=== PATIENT | male | born 1970 | race Caucasian/White ===

== ENCOUNTER 2017-02-16 05:26 | Inpatient (IN) | payer BC ==
[2017-02-16 05:30] VITALS: BMI 27.8
[2017-02-16] MEDS ORDERED: TDAP Vaccine 0.5 mL Syr IM ONE (05:52)
[2017-02-16] MEDS ORDERED: Sodium Chloride 0.9% 1,000 ML IV STA (05:52)
[2017-02-16] MEDS ORDERED: Lidocaine 1%/Epinephrine 1:100000 30 ml vial IJ STA (06:02)
--- NOTE | 2017-02-16 06:02 | ED PDOC ---
Arrival/HPI - General Chief Complaint: Syncope Time Seen by Provider: 02/16/17 05:51 Historian: Patient - History of Present Illness Narrative History of Present Illness (Text): 02/16/17 05:58 A 46 year old male, who denies any past medical history, presents to the emergency department after syncopal episode. Patient states he couldn't sleep so went to the bathroom and as he was sitting on the toilet, browsing the internet on his phone, he passed out. Patient states was not straining. He states he can't recall event. Patient is now complaining of generalized weakness. Patient denies any other complaints at this time. Symptom Onset: Sudden Symptom Course: Unchanged Activities at Onset: Rest Modifying Factors (Text): none Context: Home Past Medical History - Provider Review Nursing Documentation Reviewed: Yes - Infectious Disease Hx of Infectious Diseases: None - Tetanus Immunization Tetanus Immunization: Unknown - Cardiac Hx Hypertension: Yes - Pulmonary Hx Respiratory Disorders: No - Neurological Hx Neurological Disorder: No - HEENT Hx HEENT Disorder: No - Renal Hx Renal Disorder: No - Endocrine/Metabolic Hx Endocrine Disorders: No - Hematological/Oncological Other/Comment: Gout/Hyperuricemia - Integumentary Hx Dermatological Disorder: No - Musculoskeletal/Rheumatological Hx Musculoskeletal Disorders: Yes Hx Gout: Yes - Gastrointestinal Hx Gastrointestinal Disorders: No - Genitourinary/Gynecological Hx Genitourinary Disorders: No - Psychiatric Hx Psychophysiologic Disorder: No Hx Anxiety: Yes Hx Depression: No Hx Emotional Abuse: No Hx Physical Abuse: No Hx Substance Use: No Other/Comment: Insomnia - Surgical History Hx Orthopedic Surgery: Yes (right knee) - Anesthesia Hx Anesthesia: Yes Hx Anesthesia Reactions: No Hx Malignant Hyperthermia: No - Suicidal Assessment Feels Threatened In Home Enviroment: No Family/Social History - Physician Review Nursing Documentation Reviewed: Yes Family/Social History: No Known Family HX Smoking Status: Never Smoked Hx Alcohol Use: No Amount per day: 1 Hx Substance Use: No Hx Substance Use Treatment: No Allergies/Home Meds Allergies/Adverse Reactions: Allergies No Known Allergies Allergy (Verified 02/24/16 11:00) Home Medications: Home Meds Medication Instructions Recorded Confirmed Allopurinol [Allopurinol] 1 tab PO DAILY 02/24/16 02/16/17 Escitalopram [Lexapro] 1 tab PO DAILY 02/16/17 02/16/17 traZODone [Desyrel] 1 tab PO HS 02/16/17 02/16/17 Review of Systems - Physician Review All systems were reviewed & negative as marked: Yes Physical Exam - Physical Exam Narrative Physical Exam (Text): 02/16/17 06:02- Review of Systems Constitutional: Present: generalized weakness absent: Weight Change, Fevers Eyes: Normal ENT: Normal Respiratory: Normal absent: SOB, Cough, Sputum Cardiovascular: Normal absent: Chest pain, Palpitations, Syncope Gastrointestinal: Normal absent: Abdominal pain, Diarrhea, Nausea, Vomiting Genitourinary: Normal. absent: Dysuria, Frequency, Hematuria Musculoskeletal: Normal. absent: Arthralgias, Back Pain, Neck Pain Skin: eyebrow laceration Neurological: Normal absent: Focal Weakness Endocrine: Normal Hemo/Lymphatic: Normal Psychiatric: Normal - Physical exam Patient appears age appropriate, speaking full sentences without difficulty 1.5 cm eyebrow laceration approximately 3-4 mm deep. No nasal bone deformity or tenderness, no facial or jaw pain/swelling. No neck midline tenderness, thoracic and lumbar spine with no midline tenderness. Pt moving b/l upper and lower extremities without difficulty, 5/5 strength, with full active and passive ROM. Distal neurovasc fully intact. Abd soft/nt/nd, no hematomas, no peritoneal signs. Neg. pelvic rock. - Systems Exam Head: Present: Atraumatic, Normocephalic Pupils: Present: PERRL Extraocular Muscles: Present: EOMI Conjunctiva: Present: Normal Mouth: Present: Moist Mucous Membranes Neck: Present: Normal Range of Motion. No: MIDLINE TENDERNESS, Paraspinal Tenderness Respiratory/Chest: Present: Clear to Auscultation, Good Air Exchange. No: Respiratory Distress, Accessory Muscle Use, Tachypneic Cardiovascular: Present: Regular Rate and Rhythm, Normal S1, S2, Peripheral Pulses Present. No: Murmurs Abdomen: Present: Normal Bowel Sounds, No: Tenderness, Peritoneal Signs, Rebound, Guarding, Distention Back: Present: Normal Inspection. No: Midline Tenderness, Paraspinal Tenderness Upper Extremity: Present: Normal Inspection. No: Cyanosis, Edema Lower Extremity: Present: Normal Inspection. No: Edema Neurological: Present: GCS=15, Speech Normal, cranial nerves II through XII fully intact with no cerebellar abnormality, neuro-sensory fully intact. No focal neurological deficits. Skin: Present: Warm, Dry, Normal Color, eyebrow laceration. No: Rashes Lymphatic: Present: OX3, NI, NC Psychiatric: Present: Alert, Oriented x 3, Normal Insight, Normal Concentration Vital Signs Reviewed: Yes Vital Signs Temp Pulse Resp BP Pulse Ox 02/16/17 06:19 97.8 F 67 16 136/74 96 Temperature: Afebrile Blood Pressure: Normal Pulse: Regular Respiratory Rate: Normal Appearance: Positive for: Well-Appearing Pain Distress: None Mental Status: Positive for: Alert and Oriented X 3 Medical Decision Making ED Course and Treatment: 02/16/17 06:04 Impression: A 46 year old male presents to emergency department after syncopal episode, who is now complaining of generalized weakness. On physical exam, patient had 1.5 cm eyebrow laceration approximately 3-4 mm deep. Pt has no focal neurological deficits on examination. Differential Diagnosis include but are not limited to: syncope, dehydration Plan: -- EKG -- chest xray -- CT head -- Labs -- Urinalysis -- Boostrix Vaccine Inj, IV fluids -- Reassess and disposition Prior Visits: Notes and results from previous visits were reviewed. Patient last seen in the emergency department on 02/24/16 for evaluation of intermittent left sided chest pressure. Dr. Zepeda recommended to discharge and see patient in his office. Progress Notes: EKG: Ordered, reviewed, and independently interpreted the EKG. Rate : 65 BPM Rhythm : NSR Interpretation : No ST-segment elevations, normal intervals. Interpreted by me. Comparison : No previous EKG for comparison. 02/16/17 07:16 francy Banuelos, states to admit to hospitalist francy [place], accepted pt. pt in no distress, aware of and agrees with plan Chest xray interpreted by ED physician shows no pneumothorax, no cardiomegaly, no infiltrates Immediately prior to procedure a "time out" was called to verify the correct patient, procedure and site. Procedure: Wound anesthetized with 4 ml of 1% epinephrine with lidocaine, cleansed thoroughly, NS irrigation and explored: No foreign body or deep structure involvement detected. Entire laceration closed with size 5-0 vicryl rapide subcuticular running sutures, 4. Dermabond applied superficially Well approximated with no bleeding or neurovasc abnormality - Lab Interpretations Lab Results: 02/16/17 06:10 02/16/17 06:10 Lab Results 02/16/17 06:10: Sodium 139, Potassium 3.6, Chloride 102, Carbon Dioxide 26, Anion Gap 15, BUN 17, Creatinine 1.0, Est GFR ( Amer) > 60, Est GFR (Non- Af Amer) > 60, Random Glucose 91, Calcium 9.1, Total Bilirubin 0.5, AST 27, ALT 39, Alkaline Phosphatase 57, Lactate Dehydrogenase 372, Total Creatine Kinase 71 , Troponin I < 0.01, Total Protein 7.9, Albumin 4.3, Globulin 3.6, Albumin/ Globulin Ratio 1.2 02/16/17 06:10: PT 10.9, INR 1.01, APTT 24.0 02/16/17 06:10: WBC 9.9 D, RBC 4.90, Hgb 14.5, Hct 42.9, MCV 87.6, MCH 29.6, MCHC 33.8, RDW 14.8 H, Plt Count 286, MPV 10.6, Gran % 47.3 L, Lymph % (Auto) 38.1 H, Lewis % (Auto) 11.6 H, Eos % (Auto) 2.7, Baso % (Auto) 0.3, Gran # 4.68, Lymph # 3.8 H, Lewis # 1.2 H, Eos # 0.3, Baso # 0.03 I have reviewed the lab results: Yes - RAD Interpretation Radiology Orders: 02/16/17 05:51 HEAD W/O CONTRAST [CT] Stat 02/16/17 05:52 CHEST PORTABLE [RAD] Stat - EKG Interpretation Interpreted by ED Physician: Yes Type: 12 lead EKG - Medication Orders Current Medication Orders: Discontinued Medications Sodium Chloride (Sodium Chloride 0.9%) 1,000 mls @ 1,000 mls/hr IV .Q1H STA Stop: 02/16/17 06:51 Last Admin: 02/16/17 06:36 Dose: 1,000 mls/hr Lidocaine/Epinephrine (Lidocaine 1%/Epinephrine 1:205599 30 Ml) 1 ml IJ STAT STA Stop: 02/16/17 06:03 Last Admin: 02/16/17 06:39 Dose: 1 ml Tetanus/Reduced Diphtheria/Acell Pertussis (Boostrix Vaccine Inj) 0.5 ml IM .ONCE ONE Stop: 02/16/17 05:53 Last Admin: 02/16/17 06:40 Dose: 0.5 ml - Scribe Statement Huong Farias All medical record entries made by the Scribe were at my direction and personally dictated by me. I have reviewed the chart and agree that the record accurately reflects my personal performance of the history, physical exam, medical decision making, and the department course for this patient. I have also personally directed, reviewed, and agree with the discharge instructions and disposition. Disposition/Present on Arrival - Present on Arrival Any Indicators Present on Arrival: No History of DVT/PE: No History of Uncontrolled Diabetes: No Urinary Catheter: No History of Decub. Ulcer: No History Surgical Site Infection Following: None - Disposition Have Diagnosis and Disposition been Completed?: Yes Diagnosis: Syncope Disposition: HOME/ ROUTINE Disposition Time: 07:31 Patient Plan: Observation Condition: FAIR Discharge Instructions (ExitCare): Syncope (ED) Referrals: Jared Zepeda MD [Primary Care Provider] - Follow up with primary
[2017-02-16 06:36] LABS: ADD MANUAL DIFF? NO
[2017-02-16 06:43] LABS: GRAN % 47.3 % (50.0-68.0); HEMATOCRIT 42.9 % (42.0-52.0); LYMPH % 38.1 % (22.0-35.0); MEAN CELL VOLUME 87.6 fL (80.0-105.0); MEAN CORPUSCULAR HEMOGLOBIN 29.6 pg (25.0-35.0); MEAN CORPUSCULAR HGB CONC 33.8 g/dl (31.0-37.0); MEAN PLATELET VOLUME 10.6 fl (7.0-11.0); PLATELET COUNT 286 10^3/uL (120.0-450.0); RED CELL DISTRIBUTION WIDTH 14.8 % (11.5-14.5); WHITE BLOOD COUNT 9.9 10^3/ul (4.5-11.0)
[2017-02-16 06:44] LABS: BASO # 0.03 K/mm3 (0.0-2.0); BASO % 0.3 % (0.0-3.0); EOS # 0.3 (0.0-0.7); EOS % 2.7 % (1.5-5.0); GRAN # 4.68 (1.4-6.5); LYMPH # 3.8 (1.2-3.4); MONO # 1.2 (0.1-0.6); MONO % 11.6 % (1.0-6.0)
--- NOTE | 2017-02-16 06:47 | CT ---
EXAM: CT Head Without Intravenous Contrast CLINICAL HISTORY: 46 years old, male; Signs and symptoms; Syncope and collapse TECHNIQUE: Axial computed tomography images of the head/brain without intravenous contrast. This CT exam was performed using one or more of the following dose reduction techniques: automated exposure control, adjustment of the mA and/or kV according to patient size, and/or use of iterative reconstruction technique. EXAM DATE/TIME: 02/16/2017 5:51 AM COMPARISON: No relevant prior studies available. FINDINGS: There is no subdural or subarachnoid hemorrhage. There is no intraparenchymal hemorrhage. Normal larsen white differentiation is noted. No midline shift or mass effect is identified. Calvarium and visualized facial bones appear intact. The minimal mucosa thickening to ethmoid and maxillary sinuses. IMPRESSION: No evidence of acute cerebral hemorrhage or edema.
[2017-02-16 06:49] LABS: ALB/GLOB RATIO 1.2 (1.1-1.8); ALKALINE PHOSPHATASE 57 U/L (38-133); ALT/SGPT 39 U/L (7-56); AST/SGOT 27 U/L (15-59); BILIRUBIN,TOTAL 0.5 mg/dL (0.2-1.3); BLOOD UREA NITROGEN 17 mg/dL (7-21); CALCIUM 9.1 mg/dL (8.4-10.5); CARBON DIOXIDE 26 mmol/L (21-33); CHLORIDE 102 mmol/L (98-107); GFR AFRICAN-AMERICAN > 60; GLUCOSE,RANDOM 91 mg/dL (70-110); INR 1.01 (0.93-1.08); POTASSIUM 3.6 mmol/L (3.6-5.0); SODIUM 139 mmol/L (132-148); TOTAL PROTEIN 7.9 g/dL (5.8-8.3)
[2017-02-16 07:08] LABS: TROPONIN I < 0.01 ng/mL
[2017-02-16 07:28] LABS: URINE BILIRUBIN NEGATIVE (NEGATIVE); URINE BLOOD TRACE-INTACT (NEGATIVE); URINE GLUCOSE (UA) NEGATIVE (NEGATIVE); URINE KETONE NEGATIVE (NEGATIVE); URINE LEUKOCYTE ESTERASE NEGATIVE Leu/uL (NEGATIVE); URINE PROTEIN NEGATIVE mg/dL (<30 mg/dL); URINE UROBILINOGEN 0.2 E.U./dL (<1 E.U./dL)
[2017-02-16 07:40] LABS: URINE APPEARANCE CLEAR (CLEAR); URINE COLOR YELLOW (YELLOW)
[2017-02-16 08:38] LABS: URINE BACTERIA TRACE (NEG); URINE RBC 0 - 2 /hpf (0-2); URINE WBC 0 - 2 /hpf (0-6)
--- NOTE | 2017-02-16 11:06 | RAD ---
HISTORY: cough COMPARISON: No prior. FINDINGS: LUNGS: No active pulmonary disease. PLEURA: No significant pleural effusion identified, no pneumothorax apparent. CARDIOVASCULAR: Normal. OSSEOUS STRUCTURES: No significant abnormalities. VISUALIZED UPPER ABDOMEN: Normal. OTHER FINDINGS: None. IMPRESSION: No active disease.
--- NOTE | 2017-02-16 11:49 | CP.PCM.HP ---
<Clotilde Ny - Last Filed: 02/16/17 11:40> History of Present Illness - History of Present Illness History of Present Illness: This is a 46Y M with PMH insomnia, Anxiety, depression, and gout who came to the ED for syncopal episode. Patient reports he has been trouble sleeping the past few nights. Last night he was sitting on the toilet, not having a BM or straining and next thing he knew he was on the floor. He denies tongue biting, muscle pain, papitations at the time. He did hit his head and has a cut on his L eyebrow. As he was cleaning up the blood, he began to feel nauseous again like he was going to pass out and he passed out again. It was witnessed by his son, he did not have tonic-clonic movements or incontinence. He has had syncopal episodes in the past. In the past 6 months he has had at least 2 syncopal episodes. He does have a history of anxiety and feels chest pains at times especially when he was anxious. His reports that many years ago he had an MRI of his brain which showed a dilated vein and was supposed to get a repeat MRI 6 months later, but never followed up. He did have a stress test 2 years ago which was normal. He denies CP, SOB, n/v/d, numbness/tingling, pain, fever or chills. He does have a slight headache. PMH: insomnia, Anxiety, depression, gout PSH: Arthroscopy R knee Home meds: Trazodone 50mg 1.5 tab qHS, Lexapro 5mg qd Confirmed with Pharmacy [facility] [address] All: NKDA SH: Former smoker (quit 3yrs ago- smoked 1.5ppd x 25yrs). Denies drug or EtOH use. Works as personal carer FH: Dad- Prostate Ca age 83, Mom- 52yo for kidney failure, Sister- DM , heart problems PMD: Dr. Zepeda Psychiatrist: Dr. Peters Present on Admission - Present on Admission Any Indicators Present on Admission: No Review of Systems - Review of Systems Review of Systems: As per HPI Past Patient History - Infectious Disease Hx of Infectious Diseases: None - Tetanus Immunizations Tetanus Immunization: Unknown - Past Social History Smoking Status: Never Smoked - CARDIAC Hx Hypertension: Yes - PULMONARY Hx Respiratory Disorders: No - NEUROLOGICAL Hx Neurological Disorder: No - HEENT Hx HEENT Problems: No - RENAL Hx Chronic Kidney Disease: No - ENDOCRINE/METABOLIC Hx Endocrine Disorders: No - HEMATOLOGICAL/ONCOLOGICAL Other/Comment: Gout/Hyperuricemia - INTEGUMENTARY Hx Dermatological Problems: No - MUSCULOSKELETAL/RHEUMATOLOGICAL Hx Musculoskeletal Disorders: Yes Hx Gout: Yes - GASTROINTESTINAL Hx Gastrointestinal Disorders: No - GENITOURINARY/GYNECOLOGICAL Hx Genitourinary Disorders: No - PSYCHIATRIC Hx Psychophysiologic Disorder: No Hx Anxiety: Yes Hx Depression: No Hx Emotional Abuse: No Hx Physical Abuse: No Hx Substance Use: No Other/Comment: Insomnia - SURGICAL HISTORY Hx Orthopedic Surgery: Yes (right knee) - ANESTHESIA Hx Anesthesia: Yes Hx Anesthesia Reactions: No Hx Malignant Hyperthermia: No Meds Allergies/Adverse Reactions: Allergies Allergy/AdvReac Type Severity Reaction Status Date / Time No Known Allergies Allergy Verified 02/24/16 11:00 Physical Exam - Constitutional Appears: No Acute Distress - Head Exam Head Exam: ATRAUMATIC, NORMAL INSPECTION, NORMOCEPHALIC - Eye Exam Eye Exam: Normal appearance Pupil Exam: NORMAL ACCOMODATION - ENT Exam ENT Exam: Mucous Membranes Moist - Neck Exam Neck exam: Positive for: Normal Inspection - Respiratory Exam Respiratory Exam: Clear to Auscultation Bilateral, NORMAL BREATHING PATTERN. absent: Rales, Rhonchi, Wheezes - Cardiovascular Exam Cardiovascular Exam: REGULAR RHYTHM, +S1, +S2. absent: Gallop, Rubs, Systolic Murmur - GI/Abdominal Exam GI & Abdominal Exam: Normal Bowel Sounds, Soft. absent: Mass, Rebound, Rigid, Tenderness - Extremities Exam Extremities exam: Positive for: normal inspection. Negative for: calf tenderness, pedal edema - Neurological Exam Neurological exam: Alert, CN II-XII Intact, Oriented x3 - Psychiatric Exam Psychiatric exam: Anxious, Normal Affect, Normal Mood - Skin Skin Exam: Dry, Intact, Normal Color, Warm Results - Vital Signs Recent Vital Signs: Last Vital Signs Temp 97.8 F 02/16/17 06:19 Pulse 636 H 02/16/17 09:00 Resp 18 02/16/17 09:00 BP 139/83 02/16/17 09:00 Pulse Ox 96 02/16/17 09:00 - Labs Result Diagrams: 02/16/17 06:10 02/16/17 06:10 Assessment & Plan - Assessment and Plan (Free Text) Assessment: This is a 46Y M with PMH Insomnia, anxiety/depression, and gout admitted for syncopal episode. Plan: 1. Syncope - secondary to cardiac versus seizure versus anxiety - Neuro check - Aspiration precaution - EKG showed NSR - CT head negative - Will check echo, carotid doppler and EEG - will check MRI of brain for venous dilation - Cardio consulted - Neuro consulted - Tylenol prn pain, Zofran prn nausea 2. Insomnia - Continue home meds: Trazodone 75mg HS 3. Depression/Anxiety - Psych consulted - Ativan prn anxiety - Continue Home meds: Lexapro GI ppx: Protonix DVT ppx: SCDs Case seen, discussed and reviewed with attending. Milly Ny - Date & Time Date: 02/16/17 Time: 11:53 <Amy Duran - Last Filed: 02/17/17 12:56> Results - Vital Signs Recent Vital Signs: Last Vital Signs Temp 98.3 F 02/17/17 12:00 Pulse 66 02/17/17 12:00 Resp 20 02/17/17 12:00 BP 130/70 02/17/17 12:00 Pulse Ox 95 02/17/17 05:56 - Labs Result Diagrams: 02/17/17 07:57 02/17/17 07:57 Labs: Laboratory Results - last 24 hr 02/16/17 02/16/17 02/17/17 14:19 18:00 07:57 WBC 8.8 RBC 5.00 Hgb 14.9 Hct 44.0 MCV 88.0 MCH 29.8 MCHC 33.9 RDW 14.8 H Plt Count 301 MPV 10.5 Gran % 48.6 L Lymph % (Auto) 37.2 H [place] % (Auto) 10.1 H Eos % (Auto) 3.5 Baso % (Auto) 0.6 Gran # 4.30 Lymph # 3.3 [place] # 0.9 H Eos # 0.3 Baso # 0.05 Sodium Potassium Chloride Carbon Dioxide Anion Gap BUN Creatinine Est GFR ( Amer) Est GFR (Non-Af Amer) Random Glucose Calcium Total Bilirubin AST ALT Alkaline Phosphatase Total Protein Albumin Globulin Albumin/Globulin Ratio Triglycerides Cholesterol LDL Cholesterol Direct HDL Cholesterol TSH 3rd Generation Urine Opiates Screen Negative Urine Methadone Screen Negative Ur Barbiturates Screen Negative Ur Phencyclidine Scrn Negative Ur Amphetamines Screen Negative U Benzodiazepines Scrn Negative U Oth Cocaine Metabols Negative U Cannabinoids Screen Negative Alcohol, Quantitative < 10 02/17/17 02/17/17 07:57 07:57 WBC RBC Hgb Hct MCV MCH MCHC RDW Plt Count MPV Gran % Lymph % (Auto) [place] % (Auto) Eos % (Auto) Baso % (Auto) Gran # Lymph # [place] # Eos # Baso # Sodium 141 Potassium 3.5 L Chloride 103 Carbon Dioxide 27 Anion Gap 15 BUN 15 Creatinine 1.1 Est GFR ( Amer) > 60 Est GFR (Non-Af Amer) > 60 Random Glucose 91 Calcium 9.5 Total Bilirubin 0.6 AST 28 ALT 40 Alkaline Phosphatase 52 Total Protein 7.8 Albumin 4.2 Globulin 3.6 Albumin/Globulin Ratio 1.2 Triglycerides 210 H Cholesterol 228 H LDL Cholesterol Direct 149 H HDL Cholesterol 37 TSH 3rd Generation 1.41 Urine Opiates Screen Urine Methadone Screen Ur Barbiturates Screen Ur Phencyclidine Scrn Ur Amphetamines Screen U Benzodiazepines Scrn U Oth Cocaine Metabols U Cannabinoids Screen Alcohol, Quantitative Attending/Attestation - Attestation I have personally seen and examined this patient.: Yes I have fully participated in the care of the patient.: Yes I have reviewed all pertinent clinical information: Yes Notes (Text): 02/17/17 12:52 Attending note; Patient seen and examined with resident. This is a 46 year old male with the PMH of insomnia, Anxiety and depression who came to the ED for syncopal episode. Patient reports he has been trouble sleeping the past few nights. The patient passed out fell and had injury to the left eyebrow. Patient denies any tongue bite. No urinary or bowel incontinence. Complaints of right hand shakiness at times. Patient had previous stress test done within [address] Christ[address] Holter monitor. Neurology evaluation requested. CT head is negative. MRI/MRA ordered. EEG requested. Anxiety; psychiatric evaluation requested. Patient follows up with as outpatient. Upon discharge the patient will follow-up with PMD Dr. Zepeda.
--- NOTE | 2017-02-16 12:28 | CARD ---
APPROVED REPORT EXAM: Two-dimensional and M-mode echocardiogram with Doppler and color Doppler. 2D DIMENSIONS IVSd1.1 (0.7-1.1cm)LVDd4.4 (3.9-5.9cm) PWd0.9 (0.7-1.1cm)LVDs3.1 (2.5-4.0cm) FS (%) 30.2 %LVEF (%)57.7 (>50%) M-Mode DIMENSIONS Left Atrium (MM)3.00 (2.5-4.0cm)Aortic Root3.20 (2.2-3.7cm) Aortic Cusp Exc.2.00 (1.5-2.0cm) Aortic Valve AoV Peak Hniozngy224.0cm/sAoV VTI22.9cmAO Peak GR.5mmHg LVOT Peak Ehdcatba07.5cm/sLVOT VTI19.60cmAO Mean GR.3mmHg Mitral Valve MV E Sipseopf49.0cm/sMV A Qwkrvxve95.1cm/sE/A ratio1.1 TDI Lateral E' Peak V14.80cm/sMedial E' Peak V9.46cm/sE/Lateral E'5.1 E/Medial E'7.9 Tricuspid Valve TR Peak Ybmnzvjy617my/sTR Peak Gr.16mmHg LEFT VENTRICLE The left ventricle is normal size. There is normal left ventricular wall thickness. The left ventricular ejection fraction is within the normal range. Mild Septal and Apical hypokinesis Transmitral Doppler flow pattern is Grade I-abnormal relaxation pattern. RIGHT VENTRICLE The right ventricle is normal size. There is normal right ventricular wall thickness. The right ventricular systolic function is normal. ATRIA The left atrium size is normal. The right atrium size is normal. AORTIC VALVE The aortic valve is normal in structure. No aortic regurgitation is present. MITRAL VALVE The mitral valve is normal in structure. There is no mitral valve regurgitation noted. GREAT VESSELS The aortic root is normal in size. The IVC is normal in size and collapses >50% with inspiration. PERICARDIAL EFFUSION There is no pericardial effusion. <Conclusion> The left ventricle is normal size. There is normal left ventricular wall thickness. The left ventricular ejection fraction is within the normal range. Mild Septal and Apical hypokinesis Transmitral Doppler flow pattern is Grade I-abnormal relaxation pattern.
[2017-02-16] MEDS ORDERED: Pneumococcal 23-Valent Vaccine IM ONE (12:37)
--- NOTE | 2017-02-16 13:25 | US ---
PROCEDURE: Bilateral carotid artery duplex ultrasound HISTORY: Carotid stenosis syncope PHYSICIAN(S): Hitesh Lloyd MD. TECHNIQUE: Duplex sonography and color-flow Doppler were used to evaluate the carotid bifurcations and limited segments of the vertebral arteries bilaterally. FINDINGS: There is mild smooth hypoechoic plaque noted at the carotid bifurcations bilaterally. The peak systolic velocity in the proximal right internal carotid artery is 84 cm/sec. This corresponds to a 20 to 39% proximal right ICA stenosis. Normal systolic velocities are noted in the proximal right external carotid artery. There is antegrade flow in the right vertebral artery. The peak systolic velocity in the proximal left internal carotid artery is 86 cm/sec. This corresponds to a 20 to 39% proximal left ICA stenosis. Normal systolic velocities are noted in the proximal left external carotid artery. There is antegrade flow in the dominant left vertebral artery. IMPRESSION: 1. Bilateral 20-39% proximal ICA stenoses. 2. Antegrade flow in both vertebral arteries.
--- NOTE | 2017-02-16 15:18 | CON ---
DATE: 02/16/2017 The patient is in room 262, bed 2. REASON FOR CONSULTATION: Multiple syncopal episodes. HISTORY OF PRESENT ILLNESS: A 46-year-old male with history of insomnia, anxiety, depression and gou t was admitted to the hospital, that he woke up and went to bathroom. While he was sitting on the co mmode, he felt a nausea feeling and after that he found himself on the floor and looked like he hit h is face on the floor as there is ecchymosis around the left eye. Denies any chest pain, palpitations , shortness of breath associated with this episode. He says that close to 4 times a year he has thes e episodes. They were all associated with nausea, preceded by nausea and then he passes out and one time he got injection and he felt the same feeling and passed out. PAST MEDICAL HISTORY: Positive for gout, depression, anxiety and insomnia. He had arthroscopy of th e knee. HOME MEDICATIONS: He was taking trazodone 50 mg 1-1/2 tablet at bedtime and Lexapro 5 mg daily. PERSONAL HISTORY: Used to smoke 1-1/2 packs daily and stopped 3 years ago. Denies using ethanol or drugs. FAMILY HISTORY: Father had prostate CA. Mom of kidney failure. Her sister has diabetes and co ronary artery disease. REVIEW OF SYSTEMS: All the systems were reviewed. Positives mentioned in the history, others were n egative. PHYSICAL EXAMINATION: VITAL SIGNS: Blood pressure 139/83, respirations 18, pulse 63, temperature 97.8. HEENT: Head is normocephalic. Eyes: Pupils normal. Conjunctivae normal. Nose and throat normal. NECK: JVP low. Carotids equal. THORAX: AP diameter normal. LUNGS: Clear. CARDIOVASCULAR: S1, S2. ABDOMEN: Soft, nontender, no organomegaly. Bowel sounds normal. EXTREMITIES: No clubbing, no cyanosis. LABORATORY DATA: WBC 9.9, hemoglobin 14.5, hematocrit 42.9, platelet 286. Sodium 139, potassium 3.6 , BUN 17, creatinine 1.0, calcium 9.1. AST, ALT normal. Troponin less than 0.01. Chest x-ray, no a ctive disease. EKG showed regular sinus rhythm. CT scan of the head showed no evidence of any cereb ral hemorrhage. Echocardiogram showed normal LV ejection fraction 58%, normal LV size, grade I diast olic dysfunction. DIAGNOSES: Multiple syncopes, clinically sounds like vasovagal type. PLAN: Continue on quality assurance monitor to rule out arrhythmia. We will also put 24-hour Holter monitor . Carotid ultrasound has been already requested. We will follow with you. Gabriela Christensen MD cc: [id number] TT: 02/16/2017 15:18:11 Confirmation # [id number] Dictation # [id number]
--- NOTE | 2017-02-16 15:34 | CARD ---
APPROVED REPORT EKG Measurement Heart [id number] ND [id number] <Conclusion> Normal sinus rhythm Normal ECG
--- NOTE | 2017-02-16 16:17 | MRI ---
PROCEDURE: MRI BRAIN WITHOUT CONTRAST HISTORY: syncope COMPARISON: None. TECHNIQUE: Multiplanar, multisequence MR images of the brain were obtained without intravenous contrast enhancement. FINDINGS: HEMORRHAGE: None DWI: No evidence of an acute or early subacute infarction. BRAIN PARENCHYMA: No mass effect or edema. No atrophy or chronic microvascular ischemic changes. VENTRICLES: Unremarkable. No hydrocephalus. CRANIUM: Unremarkable. ORBITS: Grossly unremarkable. PARANASAL SINUSES/MASTOIDS: Clear VASCULAR SYSTEM: Skull base flow voids intact. OTHER FINDINGS: None. IMPRESSION: Unremarkable non contrast enhanced MRI of the brain.
--- NOTE | 2017-02-17 07:28 | MRI ---
PROCEDURE: Magnetic Resonance Angiography Brain HISTORY: syncope COMPARISON: None available. TECHNIQUE: 3D time of flight MR angiography of the intracranial arteries was performed. Rotating maximum intensity projection images were generated. FINDINGS: INTERNAL CEREBRAL ARTERIES: Unremarkable. The skull base, petrous, cavernous and supraclinoid segments are bilaterally widely patient. ANTERIOR CEREBRAL ARTERIES: Unremarkable. A1 and A2 segments are widely patent. Smaller distal branches unremarkable, as visualized. MIDDLE CEREBRAL ARTERIES: Unremarkable. M1 and M2 segments are widely patent. Perisylvian branches grossly symmetric. POSTERIOR CIRCULATION: Basilar Artery: Unremarkable. Distal Vertebral Arteries: Unremarkable. Posterior Cerebral Arteries: Unremarkable. Posterior Inferior Cerebellar Arteries: Unremarkable. ANEURYSM/ VASCULAR MALFORMATIONS: None. OTHER FINDINGS: None. IMPRESSION: Unremarkable MR angiography of the brain.
[2017-02-17 07:59] LABS: ADD MANUAL DIFF? NO
[2017-02-17 08:18] LABS: ALB/GLOB RATIO 1.2 (1.1-1.8); ALKALINE PHOSPHATASE 52 U/L (38-133); ALT/SGPT 40 U/L (7-56); AST/SGOT 28 U/L (15-59); BILIRUBIN,TOTAL 0.6 mg/dL (0.2-1.3); BLOOD UREA NITROGEN 15 mg/dL (7-21); CALCIUM 9.5 mg/dL (8.4-10.5); CARBON DIOXIDE 27 mmol/L (21-33); CHLORIDE 103 mmol/L (95-110); CHOLESTEROL 228 mg/dL (130-200); GFR AFRICAN-AMERICAN > 60; GLUCOSE,RANDOM 91 mg/dL (70-110); POTASSIUM 3.5 mmol/L (3.6-5.0); SODIUM 141 mmol/L (132-148); TOTAL PROTEIN 7.8 g/dL (5.8-8.3)
[2017-02-17] MEDS: Pantoprazole 40 mg EC Tab PO SCH (08:26)
[2017-02-17 08:41] LABS: BASO # 0.05 K/mm3 (0.0-2.0); BASO % 0.6 % (0.0-3.0); EOS # 0.3 (0.0-0.7); EOS % 3.5 % (1.5-5.0); GRAN % 48.6 % (50.0-68.0); LYMPH # 3.3 (1.2-3.4); LYMPH % 37.2 % (22.0-35.0); MEAN CORPUSCULAR HEMOGLOBIN 29.8 pg (25.0-35.0); MEAN CORPUSCULAR HGB CONC 33.9 g/dl (31.0-37.0); MEAN PLATELET VOLUME 10.5 fl (7.0-11.0); MONO # 0.9 (0.1-0.6); MONO % 10.1 % (1.0-6.0); PLATELET COUNT 301 10^3/uL (120.0-450.0); RED CELL DISTRIBUTION WIDTH 14.8 % (11.5-14.5); WHITE BLOOD COUNT 8.8 10^3/ul (4.5-11.0)
[2017-02-17] MEDS ORDERED: Potassium Chloride 20 mEq ER Tab PO ONE ×2 (09:51→11:08)
--- NOTE | 2017-02-17 10:04 | CP.PCM.PN ---
<Clotilde Ny - Last Filed: 02/17/17 09:58> Subjective - Date & Time of Evaluation Date of Evaluation: 02/17/17 Time of Evaluation: 09:59 - Subjective Subjective: Hospitalist Progress Note Patient seen and examined at bedside. There were no acute overnight events. He reports he feels better today. He denies having CP, SOB, n/v/d, numbness/ tingling, fever, chills. He is able to walk to the bathroom without assistance. Objective - Vital Signs/Intake and Output Vital Signs (last 24 hours): Temp Pulse Resp BP Pulse Ox 97.8 F 63 20 105/60 95 02/17/17 05:56 02/17/17 05:56 02/17/17 05:56 02/17/17 05:56 02/17/17 05:56 Intake and Output: 02/17/17 02/17/17 06:59 18:59 Intake Total 180 Balance 180 - Medications Medications: Current Medications Acetaminophen (Tylenol 325mg Tab) 650 mg PO Q4H PRN PRN Reason: Pain, Mild (1-3) Atorvastatin Calcium (Lipitor) 10 mg PO DIN [facility] Escitalopram Oxalate (Lexapro) 5 mg PO HS [facility] Lorazepam (Ativan) 0.5 mg IVP Q6H PRN; Protocol PRN Reason: Anxiety Ondansetron HCl (Zofran Inj) 4 mg IVP Q6H PRN PRN Reason: Nausea/Vomiting Pantoprazole Sodium (Protonix Ec Tab) 40 mg PO ACB [facility] Last Admin: 02/17/17 08:26 Dose: 40 mg Sodium Chloride ([place] Nasal [place]) 0 ml NS Q1H PRN PRN Reason: Nasal congestion Trazodone HCl (Desyrel) 75 mg PO HS [facility] Last Admin: 02/16/17 23:09 Dose: 75 mg - Labs Labs: 02/17/17 07:57 02/17/17 07:57 PT 10.9 Seconds (9.9-11.8) 02/16/17 06:10 INR 1.01 (0.93-1.08) 02/16/17 06:10 APTT 24.0 Seconds (23.7-30.8) 02/16/17 06:10 - Constitutional Appears: No Acute Distress - Head Exam Head Exam: ATRAUMATIC, NORMAL INSPECTION, NORMOCEPHALIC - Eye Exam Eye Exam: Normal appearance Pupil Exam: NORMAL ACCOMODATION - ENT Exam ENT Exam: Mucous Membranes Moist - Respiratory Exam Respiratory Exam: Clear to Ausculation Bilateral, NORMAL BREATHING PATTERN. absent: Rales, Rhonchi, Wheezes - Cardiovascular Exam Cardiovascular Exam: REGULAR RHYTHM, +S1, +S2. absent: Gallop, Rubs, Murmur - GI/Abdominal Exam GI & Abdominal Exam: Soft, Normal Bowel Sounds. absent: Rigid, Tenderness, Mass , Rebound - Extremities Exam Extremities Exam: Normal Inspection. absent: Calf Tenderness, Pedal Edema - Neurological Exam Neurological Exam: Alert, Awake, CN II-XII Intact, Oriented x3 - Psychiatric Exam Psychiatric exam: Flat Affect, Normal Mood - Skin Skin Exam: Dry, Intact, Normal Color, Warm Assessment and Plan - Assessment and Plan (Free Text) Assessment: This is a 46Y M with PMH Insomnia, anxiety/depression, and gout admitted for syncopal episode. Plan: 1. Syncope - DDX: vasovagal, arrhythmia, anxiety, seizure - MRI and MRA of head within normal limits - Echo showed EF 54%, normal LV function - Carotid doppler showed 20-39% stenosis bilaterally - Continue neuro check, aspiration precaution - Cardio consulted- recs appreciated. Pt on 24hr holter monitor - EEG pending - Neuro consulted - Tylenol prn pain, Zofran prn nausea 2. HLD - Chol, Trig and HDL elevated - Will start Lipitor 10mg 3. Hx of Insomnia - Continue Trazodone 75mg HS 4. Depression/Anxiety - Psych consulted- spoke with pt this am - Ativan prn anxiety - Lexapro Dispo: Plan for D/C tomorrow once patient has EEG and physical therapy eval. GI ppx: Protonix DVT ppx: SCDs Case seen, discussed and reviewed with attending. Milly Ny <Amy Duran - Last Filed: 02/17/17 13:02> Objective - Vital Signs/Intake and Output Vital Signs (last 24 hours): Temp Pulse Resp BP Pulse Ox 98.3 F 66 20 130/70 95 02/17/17 12:00 02/17/17 12:00 02/17/17 12:00 02/17/17 12:00 02/17/17 05:56 Intake and Output: 02/17/17 02/17/17 06:59 18:59 Intake Total 180 Balance 180 - Medications Medications: Current Medications Acetaminophen (Tylenol 325mg Tab) 650 mg PO Q4H PRN PRN Reason: Pain, Mild (1-3) Atorvastatin Calcium (Lipitor) 10 mg PO DIN [facility] Escitalopram Oxalate (Lexapro) 5 mg PO HS [facility] Lorazepam (Ativan) 0.5 mg IVP Q6H PRN; Protocol PRN Reason: Anxiety Ondansetron HCl (Zofran Inj) 4 mg IVP Q6H PRN PRN Reason: Nausea/Vomiting Pantoprazole Sodium (Protonix Ec Tab) 40 mg PO ACB [facility] Last Admin: 02/17/17 08:26 Dose: 40 mg Sodium Chloride ([place] Nasal [place]) 0 ml NS Q1H PRN PRN Reason: Nasal congestion Trazodone HCl (Desyrel) 75 mg PO HS [facility] Last Admin: 02/16/17 23:09 Dose: 75 mg - Labs Labs: 02/17/17 07:57 02/17/17 07:57 PT 10.9 Seconds (9.9-11.8) 02/16/17 06:10 INR 1.01 (0.93-1.08) 02/16/17 06:10 APTT 24.0 Seconds (23.7-30.8) 02/16/17 06:10 Attending/Attestation - Attestation I have personally seen and examined this patient.: Yes I have fully participated in the care of the patient.: Yes I have reviewed all pertinent clinical information, including history, physical exam and plan: Yes Notes (Text): 02/17/17 12:57 Patient seen and examined with resident. This is a 46 year old male with the PMH of insomnia, Anxiety and depression who came to the ED for syncopal episode. Patient reports he has been trouble sleeping the past few nights. The patient passed out fell and had injury to the left eyebrow. Patient denies any tongue bite. No urinary or bowel incontinence. Complaints of right hand shakiness at times. Patient had previous stress test done within [address] Christensen. Cardiology evaluation appreciated. Holter monitor placed. Neurology evaluation requested. CT head is negative. MRI/MRA is negative . Carotid Doppler without significant stenosis. Echocardiogram is normal. Complaining of some dizziness .EEG requested. Patient has Staring at space at times as per . Rule out partial complex seizures. Anxiety; psychiatric evaluation appreciated. Patient follows up with as outpatient. Upon discharge the patient will follow-up with PMD Dr. Zepeda. 02/17/17 13:00
--- NOTE | 2017-02-17 10:37 | CP.PCM.PCO ---
Addendum Addendum: I met with patient at bedside. Patient is accompanied by his . Patient is coherent, alert and well-oriented to date, year, location and circumstances of being admitted to evaluate for his syncopal episodes. He is hopeful about his medical issues improving and denies SI or HI. Patient is coherent with goal- directed responses. At this time patient defers on any psychiatric management, preferring to focus on his medical recovery. Patient is aware that he can change his mind at any time and psychiatry can and will reconsult with him. We discuss his current psychiatric care with Dr. Peters. While patient denies any major incapacitation due to mood symptoms, he feels that he could be functioning better. Also reports that he has been more anxious because he and his have been "house hunting" in the past year. He will consider discussing increasing the dose of lexapro and trazodone when he follows up with Dr. Peters in the future. is in full agreement with this recommendation and confirms his account. Both patient and were reassured that anxiety does NOT cause patients to lose consciousness and that this symptom will be worked up by his medical team. As there is no indication of dangerousness, psychiatry will sign off at this time.
--- NOTE | 2017-02-17 11:57 | PN ---
DATE: 02/17/2017 The patient is in room 262, bed 2. REASON FOR CONSULTATION: Multiple syncopal episodes. HISTORY OF PRESENT ILLNESS: A 46-year-old male with insomnia, anxiety, depression, and gout who was admitted to the hospital that he woke up in the bathroom, and he was sitting on the commode when he f elt nausea, and then he found himself on the floor, and hit face, had ecchymosis around the left eye. The patient denies any chest pain, shortness of breath, palpitations associated with this episode. The patient said that he had 4-5 times earlier similar episode. Each time each episode is preceded by nausea. At one time, he was getting injection for gout, and immediately after injection, he felt nausea, and he passed out. The patient is now conscious, alert, moving all extremities. PHYSICAL EXAMINATION: VITAL SIGNS: Blood pressure 105/60, respirations 20, pulse 63, temperature 97.8. HEAD: Normocephalic. EYES: Pupils are normal. Conjunctivae are normal. NOSE AND THROAT: Normal. NECK: JVP low. Carotids equal. THORAX: AP diameter normal. LUNGS: Clear. CARDIOVASCULAR: S1, S2. ABDOMEN: Soft, nontender. No organomegaly. Bowel sounds normal. EXTREMITIES: No clubbing, no cyanosis. LABORATORY DATA: WBC 8.8, hemoglobin 14.9, hematocrit 44.0, platelets 301. Sodium 141, potassium 3. 5, BUN 15, creatinine 1.1. Triglycerides 210, cholesterol 228, LDL 149. TSH 1.41. DIAGNOSES: Multiple episodes of syncope, insomnia, depression, anxiety, history of gout, hypokalemia , high cholesterol, high triglyceride. Potassium 20 mEq has been already been given for hypokalemia. I will give her another 20 mEq stat, and the patient already started on Lipitor 10 mg daily, Protonix 40 daily. The patient is getting Desyrel 75 mg p.o. at bedtime, Lexapro 5 mg at b edtime, ____ 40 daily. We will repeat SMA-7 in the morning. We will check orthostatic blood pressure, and depending on furt her workup, we may decide to put in a loop recorder for long-term arrhythmia monitoring, and we will follow with you. The patient is being seen by neurology also. Gabriela Christensen MD cc: [id number] TT: 02/17/2017 11:56:33 Confirmation # [id number] Dictation # [id number] jn
--- NOTE | 2017-02-17 19:54 | CON ---
DATE: 02/17/2017 HISTORY OF PRESENT ILLNESS: This is a 46-year-old male with past medical history of gout, depression and insomnia, came to the hospital following patient fell, passed out in the bathroom, around 3:00 i n the morning while he was sitting on a commode and found himself on the floor. He sustained a small bruise on the left periorbital area. No tongue bite, no urinary incontinence. I was called to eval uate the patient. PAST MEDICAL HISTORY: Gout, depression, anxiety and insomnia. SOCIAL HISTORY: The patient is an ex-smoker, stopped 3 years ago. He does not drink. REVIEW OF SYSTEMS: A 10-point review of system was negative. PHYSICAL EXAMINATION: HEENT: Normocephalic, atraumatic. NECK: Supple. NEUROLOGIC: Alert, awake, oriented x 3. No aphasia. Cranial nerves II-XII were tested. Pupils chele ctive. EOM intact. Visual cagle full. No facial asymmetry. Tongue midline. Motor examination: Moves all the extremities equally. Tone normal. Deep tendon reflexes 1+. Both plantars are downgoi ng. Sensory appears intact. Cerebellar gait deferred. IMPRESSION: Syncope, less likely seizure. CAT scan and MRI of the head were negative. The patient is going for EEG in the morning. We will follow up. Jules Cline MD cc: [id number] TT: 02/17/2017 19:53:43 Confirmation # [id number] Dictation # [id number]
[2017-02-18 05:51] LABS: ADD MANUAL DIFF? NO
[2017-02-18 07:07] LABS: ALB/GLOB RATIO 1.1 (1.1-1.8); ALKALINE PHOSPHATASE 48 U/L (38-133); ALT/SGPT 39 U/L (7-56); AST/SGOT 25 U/L (15-59); BILIRUBIN,TOTAL 0.8 mg/dL (0.2-1.3); BLOOD UREA NITROGEN 19 mg/dL (7-21); CALCIUM 9.5 mg/dL (8.4-10.5); CARBON DIOXIDE 29 mmol/L (21-33); CHLORIDE 100 mmol/L (98-107); GFR AFRICAN-AMERICAN > 60; GLUCOSE,RANDOM 93 mg/dL (70-110); POTASSIUM 4.1 mmol/L (3.6-5.0); SODIUM 141 mmol/L (132-148); TOTAL PROTEIN 8.1 g/dL (5.8-8.3)
[2017-02-18 07:25] LABS: BASO # 0.04 K/mm3 (0.0-2.0); BASO % 0.4 % (0.0-3.0); EOS # 0.3 (0.0-0.7); GRAN # 6.34 (1.4-6.5); GRAN % 56.4 % (50.0-68.0); HEMATOCRIT 45.7 % (42.0-52.0); LYMPH # 3.2 (1.2-3.4); LYMPH % 28.3 % (22.0-35.0); MEAN CELL VOLUME 88.6 fL (80.0-105.0); MEAN CORPUSCULAR HEMOGLOBIN 29.5 pg (25.0-35.0); MEAN CORPUSCULAR HGB CONC 33.3 g/dl (31.0-37.0); MEAN PLATELET VOLUME 10.6 fl (7.0-11.0); MONO # 1.3 (0.1-0.6); MONO % 11.9 % (1.0-6.0); PLATELET COUNT 295 10^3/uL (120.0-450.0); RED CELL DISTRIBUTION WIDTH 15.2 % (11.5-14.5); WHITE BLOOD COUNT 11.2 10^3/ul (4.5-11.0)
[2017-02-18] MEDS: Pantoprazole 40 mg EC Tab PO SCH (08:26)
--- NOTE | 2017-02-18 09:57 | PN ---
DATE: 02/18/2017 REASON FOR CONSULTATION AND FOLLOWUP: Multiple syncopal episodes. BRIEF CLINICAL HISTORY: A 46-year-old male with past medical history of anxiety disorder, insomnia a nd depression. Admitted with multiple syncopal episodes, have 4-5 times. Previously, had a similar episode. The patient is scheduled today for loop recorder. Denies any chest pain, shortness of jillian th, any palpitation. PHYSICAL EXAMINATION: VITAL SIGNS: Temperature afebrile, heart rate 64, blood pressure 105/57. HEENT: PERRLA. Extraocular muscles intact. NECK: Supple. No carotid bruits. No thyromegaly. CHEST: Clear to auscultation. HEART: S1, S2 regular. ABDOMEN: Soft. EXTREMITIES: Clubbing, cyanosis negative. BLOOD WORKUP: WBC 11.2, hemoglobin 15. , hematocrit 45.7, platelet count 295. Chemistry shows s odium 141, potassium 4. , chloride 100, carbon dioxide , anion gap of 16, BUN 19, creatinine 1.1, total cholesterol 228, triglyceride 210, LDL 149. IMPRESSION: Recurrent syncope, anxiety disorder, insomnia, depression, history of gout, hypokalemia, hyperlipidemia, hypertriglyceridemia. RECOMMENDATION: Supplement electrolytes as needed. We will get orthostatic hypotension and check fo r orthostatic hypotension and will also put loop recorder. Further recommendation after the hospital course. We will follow with you. Thank you, Dr. Duran, for providing us the opportunity in taking care of the patient. Gabriela Mejia MD cc: [id number] TT: 02/18/2017 09:56:41 Confirmation # [id number] Dictation # [id number]
--- NOTE | 2017-02-18 13:31 | CP.PCM.PN ---
<Analia Mosquera - Last Filed: 02/18/17 15:18> Subjective - Date & Time of Evaluation Date of Evaluation: 02/18/17 Time of Evaluation: 13:28 - Subjective Subjective: PGY-1 Medicine progress note Patient was seen and examined at bedside. No acute distress, patient is comfortable. Nurse reports no acute events overnight. Patient denies any syncope ,dizziness, vision changes, headache, n/v. He reports right knee pain. Patient states that pain started yesterday afternoon and he is unable to place his weight on his knee. Patient has history of meniscus repair if right knee and arthritis of knee cap. Objective - Vital Signs/Intake and Output Vital Signs (last 24 hours): Temp Pulse Resp BP Pulse Ox 98.7 F 64 20 105/57 L 97 02/18/17 06:00 02/18/17 06:00 02/18/17 06:00 02/18/17 06:00 02/18/17 06:00 Intake and Output: 02/18/17 02/18/17 06:59 18:59 Intake Total 540 Balance 540 - Medications Medications: Current Medications Acetaminophen (Tylenol 325mg Tab) 650 mg PO Q4H PRN PRN Reason: Pain, Mild (1-3) Atorvastatin Calcium (Lipitor) 10 mg PO DIN [facility] Last Admin: 02/17/17 17:19 Dose: 10 mg Escitalopram Oxalate (Lexapro) 5 mg PO [facility] Last Admin: 02/17/17 22:13 Dose: 5 mg Lorazepam (Ativan) 0.5 mg IVP Q6H PRN; Protocol PRN Reason: Anxiety Ondansetron HCl (Zofran Inj) 4 mg IVP Q6H PRN PRN Reason: Nausea/Vomiting Pantoprazole Sodium (Protonix Ec Tab) 40 mg PO ACB [facility] Last Admin: 02/18/17 08:26 Dose: Not Given Sodium Chloride ([place] Nasal [place]) 0 ml NS Q1H PRN PRN Reason: Nasal congestion Trazodone HCl (Desyrel) 75 mg PO [facility] Last Admin: 02/17/17 22:13 Dose: 75 mg - Labs Labs: 02/18/17 05:30 02/18/17 06:15 PT 10.9 Seconds (9.9-11.8) 02/16/17 06:10 INR 1.01 (0.93-1.08) 02/16/17 06:10 APTT 24.0 Seconds (23.7-30.8) 02/16/17 06:10 - Constitutional Appears: Well, No Acute Distress - Head Exam Head Exam: ATRAUMATIC - Eye Exam Eye Exam: EOMI, Normal appearance - ENT Exam ENT Exam: Mucous Membranes Moist - Respiratory Exam Respiratory Exam: Clear to Ausculation Bilateral, NORMAL BREATHING PATTERN. absent: Rhonchi, Wheezes, Respiratory Distress - Cardiovascular Exam Cardiovascular Exam: REGULAR RHYTHM. absent: Tachycardia, Murmur - GI/Abdominal Exam GI & Abdominal Exam: Soft. absent: Distended, Firm, Guarding, Tenderness, Normal Bowel Sounds - Extremities Exam Extremities Exam: Normal Inspection. absent: Pedal Edema Additional comments: right knee: pain with palpation, no erythema - Neurological Exam Neurological Exam: Alert, Awake, Oriented x3 Assessment and Plan - Assessment and Plan (Free Text) Assessment: 46Y M with PMH of insomnia, anxiety/depression, and gout admitted for syncopal episode. Patient report right knee pain. Plan: 1. Syncope - DDX: vasovagal, arrhythmia, anxiety, seizure - MRI and MRA of head within normal limits - Echo showed EF 54%, normal LV function - Carotid doppler showed 20-39% stenosis bilaterally - Continue neuro check, aspiration precaution - Cardio following - Pt completed 24hr holter monitor, read pending - EEG pending - Neuro following - Tylenol prn pain, Zofran prn nausea 2. right knee pain - R/O septic joint, possible arthritis - CT of right knee - PT reevaluation 3. HLD - Cholesterol, Trig and HDL elevated - cont Lipitor 10mg 4. Hx of Insomnia - Continue Trazodone 75mg HS 5. Depression/Anxiety - Psych consulted- spoke with pt this am - Ativan prn anxiety - Lexapro Dispo: Plan for D/C pending EEG read, CT of right knee and physical therapy eval. GI ppx: Protonix DVT ppx: SCDs Case seen, discussed and reviewed with attending. <Angella Knight B - Last Filed: 02/18/17 16:14> Objective - Vital Signs/Intake and Output Vital Signs (last 24 hours): Temp Pulse Resp BP Pulse Ox 98.7 F 63 20 105/57 L 97 02/18/17 06:00 02/18/17 14:00 02/18/17 06:00 02/18/17 06:00 02/18/17 06:00 Intake and Output: 02/18/17 02/18/17 06:59 18:59 Intake Total 540 0 Output Total 300 Balance 540 -300 - Medications Medications: Current Medications Acetaminophen (Tylenol 325mg Tab) 650 mg PO Q4H PRN PRN Reason: Pain, Mild (1-3) Last Admin: 02/18/17 15:01 Dose: 650 mg Atorvastatin Calcium (Lipitor) 10 mg PO DIN [facility] Last Admin: 02/17/17 17:19 Dose: 10 mg Escitalopram Oxalate (Lexapro) 5 mg PO HS [facility] Last Admin: 02/17/17 22:13 Dose: 5 mg Lorazepam (Ativan) 0.5 mg IVP Q6H PRN; Protocol PRN Reason: Anxiety Ondansetron HCl (Zofran Inj) 4 mg IVP Q6H PRN PRN Reason: Nausea/Vomiting Pantoprazole Sodium (Protonix Ec Tab) 40 mg PO ACB [facility] Last Admin: 02/18/17 08:26 Dose: Not Given Sodium Chloride ([place] Nasal [place]) 0 ml NS Q1H PRN PRN Reason: Nasal congestion Trazodone HCl (Desyrel) 75 mg PO HS [facility] Last Admin: 02/17/17 22:13 Dose: 75 mg - Labs Labs: 02/18/17 05:30 02/18/17 06:15 PT 10.9 Seconds (9.9-11.8) 02/16/17 06:10 INR 1.01 (0.93-1.08) 02/16/17 06:10 APTT 24.0 Seconds (23.7-30.8) 02/16/17 06:10 Attending/Attestation - Attestation I have personally seen and examined this patient.: Yes I have fully participated in the care of the patient.: Yes I have reviewed all pertinent clinical information, including history, physical exam and plan: Yes Notes (Text): I have seen and examined the patient with the resident. Briefly this is 46 year old male with history of insomnia, anxiety, depression who got admitted for evaluation of multiple episodes of syncope. Last stress test was done 2 years ago was normal. Echo normal. Loop recorder was placed today. CT head, MRI /MRA brain negative. Carotid doppler negative. EEG result is pending. Discussed with Dr Cline and Dr Mejia. Today patient started complaining of right knee pain and is not able to bend his knee. He states that he had meniscal injury many years ago but he was able to walk until yesterday however he is not able to put pressure on his right leg. Will do CT knee. Upon discharge the patient will follow-up with PMD Dr. Zepeda and Dr Jayesh Knight
[2017-02-18] MEDS ORDERED: Lidocaine 2% Inj (20ml) ONE (14:07)
--- NOTE | 2017-02-18 15:32 | RAD ---
HISTORY: s/P LOOP RECORDER IMPLANTATION COMPARISON: 02/16/2017 FINDINGS: LUNGS: No active pulmonary disease. PLEURA: No significant pleural effusion identified, no pneumothorax apparent. CARDIOVASCULAR: Normal. OSSEOUS STRUCTURES: No significant abnormalities. VISUALIZED UPPER ABDOMEN: Normal. OTHER FINDINGS: None. IMPRESSION: No active disease.
--- NOTE | 2017-02-18 16:54 | PN ---
DATE: 02/18/2017 CHIEF COMPLAINT: Followup for left-sided weakness. SUBJECTIVE: The patient seen and examined at bedside. Reports some mild knee pain, but less. MRI o f the brain and head showed no acute intracranial abnormality. EEG showed bilateral cerebral dysfunc tion. No weakness of the extremities is noted. He has some mild knee pain which we will possibly ge t a CAT scan of his knee to see if there are any abnormalities. He is on trazodone for insomnia and Ativan and Lexapro for his depression and anxiety. REVIEW OF SYSTEMS: A 14-point review of systems is negative except for the HPI. PAST MEDICAL HISTORY: Anxiety, depression, insomnia and gout. FAMILY HISTORY: Noncontributory. SOCIAL HISTORY: No illicit drug use, smoking, or ETOH abuse. MEDICATIONS: Reviewed via nurse's reconciliation sheet. ALLERGIES: No known drug allergies. PHYSICAL EXAMINATION: VITAL SIGNS: Temperature of 98.7, pulse rate 64, blood pressure 105/57, respiratory rate of 20, oxyg en saturation 97% via room air. GENERAL: The patient is sitting up in bed in no acute distress. HEENT: Atraumatic, normocephalic. PERRLA. Extraocular muscles intact. NECK: Supple, no JVD, no adenopathy noted. LUNGS: Clear to auscultation. No adventitious sounds. HEART: S1, S2, normal rate and rhythm. No murmurs, rubs, or gallops. ABDOMEN: Soft, nontender, nondistended. Bowel sounds present. EXTREMITIES: No clubbing, no cyanosis. Peripheral pulses 2+ felt bilaterally. NEUROLOGIC: The patient is alert, orientated to person, place, month and year. Speech is fluent wit hout any errors. Cranial nerves II-XII are intact. MOTOR: Moves all extremities equally. No pronator drift seen. SENSORY: Light touch, pinprick, proprioception, vibration intact. DTRs 2+ throughout. COORDINATION: Pucrrb-ow-ycym intact. Gait deferred for now. DTRs are 2+ throughout, 1 at the knees and ankles. Gait is deferred for now. MUSCULOSKELETAL: Has right knee pain. LABORATORIES: Sodium is 141, potassium 4.1, chloride of 100, carbon dioxide 29, BUN of 19, creatinin e 1.1, random glucose 93. ASSESSMENT AND PLAN: This is a 46-year-old man with past medical history of insomnia, anxiety, depre ssion and gout, admitted for syncopal episode. MRI of the brain and MRA of the head is unremarkable. His echo showed an ejection fraction of 54% with normal left ventricular function. Carotid Doppler showed 20% to 39% proximal internal carotid artery stenosis bilaterally. He has had a loop recorder and pace. His EEG showed no epileptiform activity, just mild diffuse slowing consistent with bilate ral cerebral dysfunction. At this time, I think his syncope is likely secondary to transient cerebra l hypoperfusion given that his blood pressure is on the lower side versus an arrhythmia, unlikely a s eizure disorder. At this time, recommend: 1. Loop recorder replacement and to monitor and follow up with a civil structural engineer as an outpatient. 2. Aspirin 81 mg p.o. daily for stroke prevention as well as Lipitor 10 mg for underlying dyslipidem ia. 3. Lexapro 5 mg p.o. daily for his underlying depression and trazodone 75 mg p.o. at bedtime for his underlying insomnia. At this time, continue with current present medical management and get a CAT scan of his right knee t o assess his right knee pain and we will sign off. Please follow up as an outpatient. Jovani Cline MD cc: [id number] TT: 02/18/2017 16:53:45 Confirmation # [id number] Dictation # [id number] sn
--- NOTE | 2017-02-18 17:01 | CARD ---
APPROVED REPORT EKG Measurement Heart [id number] <Conclusion> Normal sinus rhythm PRWP V 1 - 6
--- NOTE | 2017-02-18 17:38 | EEG ---
DATE: 02/18/2017 STUDY PERFORMED: EEG. CONDITION ON RECORDING: Awake. DIAGNOSIS: Evaluation for syncope. MEDICATIONS: Reviewed via nurse's reconciliation sheet. The patient is on Ativan, , Lexapro. INTERPRETATION: This is a 16-channel international recording. The background activity is composed o f 5-6 cycles per second. There was a very limited amount of beta activity of 16-20 cycles per second seen in this recording. There was increased amount of theta activity at 5-7 cycles per second seen in this tracing. Drowsiness was characterized by mixed beta and theta activities. Sleep was charact erized by vertex transient waves, sleep spindles and bilateral slowing. Photic stimulation showed no change in the tracing. No paroxysmal activity noted in this recording. CONCLUSION: Abnormal EEG due to presence of diffuse slowing throughout the recording consistent with bilateral cerebral dysfunction. Please clinically correlate. No evidence of any epileptiform activ ity. Jovani Cline MD cc: [id number] TT: 02/18/2017 17:37:49 Confirmation # [id number] Dictation # [id number] ln
[2017-02-19 05:17] VITALS: O2SAT 95
[2017-02-19 06:05] LABS: ADD MANUAL DIFF? NO
[2017-02-19 06:11] LABS: BASO # 0.03 K/mm3 (0.0-2.0); BASO % 0.2 % (0.0-3.0); EOS # 0.1 (0.0-0.7); EOS % 0.6 % (1.5-5.0); GRAN # 7.72 (1.4-6.5); GRAN % 60.7 % (50.0-68.0); HEMATOCRIT 44.4 % (42.0-52.0); LYMPH # 3.5 (1.2-3.4); LYMPH % 27.3 % (22.0-35.0); MEAN CELL VOLUME 87.2 fL (80.0-105.0); MEAN CORPUSCULAR HEMOGLOBIN 30.3 pg (25.0-35.0); MEAN CORPUSCULAR HGB CONC 34.7 g/dl (31.0-37.0); MEAN PLATELET VOLUME 10.2 fl (7.0-11.0); MONO # 1.4 (0.1-0.6); MONO % 11.2 % (1.0-6.0); PLATELET COUNT 285 10^3/uL (120.0-450.0); RED CELL DISTRIBUTION WIDTH 14.6 % (11.5-14.5); WHITE BLOOD COUNT 12.7 10^3/ul (4.5-11.0)
[2017-02-19 06:28] LABS: ALB/GLOB RATIO 1.1 (1.1-1.8); ALKALINE PHOSPHATASE 57 U/L (38-133); ALT/SGPT 37 U/L (7-56); AST/SGOT 24 U/L (15-59); BILIRUBIN,TOTAL 0.8 mg/dL (0.2-1.3); BLOOD UREA NITROGEN 18 mg/dL (7-21); CALCIUM 9.3 mg/dL (8.4-10.5); CARBON DIOXIDE 27 mmol/L (21-33); CHLORIDE 99 mmol/L (98-107); GFR AFRICAN-AMERICAN > 60; GLUCOSE,RANDOM 97 mg/dL (70-110); POTASSIUM 3.8 mmol/L (3.6-5.0); SODIUM 138 mmol/L (132-148); TOTAL PROTEIN 8.3 g/dL (5.8-8.3)
[2017-02-19] MEDS: Pantoprazole 40 mg EC Tab PO SCH (07:52)
[2017-02-19] MEDS ORDERED: MethylPREDNISolone Depo 40 mg/ml Inj IM ONE (08:03)
[2017-02-19] MEDS ORDERED: Bupivacaine 0.5% Inj(30mL) IJ ONE (08:03)
--- NOTE | 2017-02-19 08:11 | CARDCATH ---
PROCEDURE DATE: 02/18/2017 PROCEDURE: Implantation of loop recorder (LINQ [employer] Reveal). INDICATION FOR PROCEDURE: Recurrent syncope, rule out arrhythmia. ASSISTANT PROFESSOR IN FAMILY STUDIES: Dr. Gabriela Mejia REGIONAL DRIVER: Kike Kathleen, veterinary technician instructor. BRIEF CLINICAL HISTORY: This is a 46-year-old male with a past medical history significant for anxiety disorder, insomnia, had multiple syncopal episodes. Recently admitted on 02/16/2017 with multiple syncope and bruise on the left eye. So, in view of above, no significant etiology was found, patient was brought for loop recorder implantation. PROCEDURE IN DETAIL: The patient was brought to the cath lab tech, draped in sterile and standard fashion. Left side of the chest was prepped in sterile standard fashion. At the fourth costal intercostal space 1 cm away from mid sternal line, 2% lidocaine was given, 2 mL, and then using [employer] BP knife blade 11, a small incision was done and pocket was created and the Reveal LINQ was injected and the puncture site was closed with Dermabond. The patient tolerated the procedure well. Arrangement was been made for transtelephonic and on-site Reveal interrogation done. Plan is to monitor the patient at least for 18 months maximum for etiology for syncope, for rule out any arrhythmia. Also, arrangement has been made for remote monitoring with rona Johnson's office. Gabriela Mejia MD cc: Gabriela [place] M.D. [id number] TT: 02/18/2017 16:14:42 sn JULIEN
--- NOTE | 2017-02-19 09:13 | CP.PCM.PN ---
Subjective - Date & Time of Evaluation Date of Evaluation: 02/19/17 Time of Evaluation: 09:09 - Subjective Subjective: PGY-1 Medicine progress note. Patient seen and examined at bedside. No acute distress, patient is laying comfortably in bed. Nurse reports mild fever of 100 overnight as well as headache. He received Tylenol. Patient states that he is doing well. The knee pain is about the same as yesterday with continuing difficulty placing weight on his knee. He denies any fever, chills, chest pain, cough, dizziness, n/v/d/ c. Yesterday loop recorder was placed by data warehouse analyst. Patient states that he does have minor pain at the incision site with movement. He is tolerating diet. Objective - Vital Signs/Intake and Output Vital Signs (last 24 hours): Temp Pulse Resp BP Pulse Ox 99.1 F 82 20 126/62 95 02/19/17 05:16 02/19/17 05:16 02/19/17 05:16 02/19/17 05:16 02/19/17 05:16 Intake and Output: 02/19/17 02/19/17 06:59 18:59 Intake Total 0 Balance 0 - Medications Medications: Current Medications Acetaminophen (Tylenol 325mg Tab) 650 mg PO Q4H PRN PRN Reason: Pain, Mild (1-3) Last Admin: 02/19/17 07:54 Dose: 650 mg Atorvastatin Calcium (Lipitor) 10 mg PO DIN [facility] Last Admin: 02/18/17 16:57 Dose: 10 mg Escitalopram Oxalate (Lexapro) 5 mg PO HS [facility] Last Admin: 02/18/17 21:37 Dose: 5 mg Lorazepam (Ativan) 0.5 mg IVP Q6H PRN; Protocol PRN Reason: Anxiety Last Admin: 02/18/17 21:36 Dose: 0.5 mg Ondansetron HCl (Zofran Inj) 4 mg IVP Q6H PRN PRN Reason: Nausea/Vomiting Pantoprazole Sodium (Protonix Ec Tab) 40 mg PO ACB [facility] Last Admin: 02/19/17 07:52 Dose: 40 mg Sodium Chloride ([place] Nasal [place]) 0 ml NS Q1H PRN PRN Reason: Nasal congestion Trazodone HCl (Desyrel) 75 mg PO HS [facility] Last Admin: 05/08/17 21:37 Dose: 75 mg - Labs Labs: 02/19/17 05:00 02/19/17 05:00 PT 10.9 Seconds (9.9-11.8) 02/16/17 06:10 INR 1.01 (0.93-1.08) 02/16/17 06:10 APTT 24.0 Seconds (23.7-30.8) 02/16/17 06:10 - Constitutional Appears: Well, No Acute Distress - Head Exam Head Exam: ATRAUMATIC, NORMOCEPHALIC - Eye Exam Eye Exam: Normal appearance - ENT Exam ENT Exam: Mucous Membranes Moist - Respiratory Exam Respiratory Exam: Chest Wall Tenderness (at incision site), Clear to Ausculation Bilateral, NORMAL BREATHING PATTERN. absent: Rhonchi, Wheezes, Respiratory Distress - Cardiovascular Exam Cardiovascular Exam: REGULAR RHYTHM, +S1, +S2. absent: Tachycardia, Murmur - GI/Abdominal Exam GI & Abdominal Exam: Normal Bowel Sounds. absent: Distended, Firm, Guarding, Rigid, Tenderness - Extremities Exam Extremities Exam: Joint Swelling (mild, right knee ), Normal Inspection (of left leg), Tenderness (with palpitation of medial right knee). absent: Pedal Edema - Neurological Exam Neurological Exam: Alert, Awake, Oriented x3 - Skin Skin Exam: Dry, Intact, Normal Color, Warm Assessment and Plan - Assessment and Plan (Free Text) Assessment: 46Y M with PMH of insomnia, anxiety/depression, and gout admitted for syncopal episode. Patient report new onset right knee pain. Patient had loop recorder placed yesterday. Plan: 1. Syncope - DDX: vasovagal, arrhythmia, anxiety, seizure - MRI and MRA of head within normal limits - CT head within normal limits - Echo showed EF 54%, normal LV function - Carotid doppler showed 20-39% stenosis bilaterally - Cardio following - Pt completed 24hr holter monitor, read pending - loop recorder placed yesterday - EEG showed no epileptiform activity with mild diffuse slowing - Neuro following - Tylenol prn pain, Zofran prn nausea 2. right knee pain - R/O septic joint, possible arthritis - CT of right knee- read pending - PT reevaluation - ortho consulted 3. HLD - Cholesterol, Trig and HDL elevated - cont Lipitor 10mg 4. Hx of Insomnia - Continue Trazodone 75mg HS 5. Depression/Anxiety - cont Ativan prn anxiety - cont Lexapro Dispo: Plan for D/C pending CT of right knee and physical therapy eval. GI ppx: Protonix DVT ppx: SCDs Case seen, discussed and reviewed with attending.
[2017-02-19 09:23] LABS: FLUID TYPE SYNOVIAL FLUID
--- NOTE | 2017-02-19 09:28 | CON ---
DATE: 02/19/2017 ORTHOPEDIC CONSULT REPORT I was asked to see him for a swollen right knee, past history of gout, and he has effusion of his rig ht knee that came on just a couple of days ago. He was admitted to the hospital on 02/16/17. So with the effusion of his right knee, we aspirated after doing a thorough prepping and draping and numbing with Xylocaine for the skin and put an 18-gauge needle in the lateral suprapatellar region an d took out 30 mL of turbid fluid - not purulent, and sent it to the lab for culture, cell count, and crystals, and injected with Depo-Medrol and Marcaine into the knee. I explained to him it looks like it is inflammatory arthritis like gout, and we will follow him. Hopefully, he can go home soon. FINAL DIAGNOSIS: Effusion, right knee from inflammatory arthritis, and fluid sent to the lab for berna l count, culture, and crystals. Marino King DO cc: [id number] TT: 02/19/2017 09:27:17 Confirmation # [id number] Dictation # [id number] palak
[2017-02-19 09:30] LABS: SYNOVIAL FLUID LYMPHOCYTE 22.5 % (0-0); SYNOVIAL FLUID NEUTROPHIL 77.5 % (0-0)
[2017-02-19 09:31] LABS: SYNOVIAL FLUID TOTAL COUNT 100 (0-0)
--- NOTE | 2017-02-19 09:34 | CT ---
PROCEDURE: CT of the right knee without contrast HISTORY: right knee pain COMPARISON: No prior similar study available for comparison. TECHNIQUE: Thin cuts 1.25 millimeter axial and reformatted coronal and sagittal CT images of the right knee were obtained without IV contrast administration. Total exam DLP: 207.91 FINDINGS: There are moderate osteoarthritic changes cyst seen. Small to moderate size marginal osteophyte formation are noted. There is also mild narrowing of the medial component of the right knee joint. No evidence of acute fracture or dislocation. Small right knee joint effusion is noted. The assessment of the soft tissue is suboptimal this study. No evidence of discrete fluid collection. There is popliteal/Hodge's cyst seen measures approximately 18 x 15 millimeter. IMPRESSION: No evidence of acute fracture or dislocation. Moderate osteoarthritic changes. Small joint effusion. Suspicious for Hodge's cyst measures approximately 1.8 x 1.5 centimeter. If clinically warranted further assessment by MRI may be obtained.
[2017-02-19] MEDS ORDERED: Potassium Chloride 20 mEq ER Tab PO ONE (09:44)
--- NOTE | 2017-02-19 10:00 | PN ---
DATE: 02/19/2017 REASON FOR CONSULTATION AND FOLLOWUP: Multiple syncopal episodes, status post loop recorder (Reveal LINQ) implanted. 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 Yesterday patient unde rwent implantable loop recorder link, remained stable. The patient also complained of knee pain and got an intraarticular injection by Dr. King now. Denies any chest pain, shortness of breath, any palpitation. PHYSICAL EXAMINATION: VITAL SIGNS: Temperature afebrile, heart rate 85, blood pressure 123/62. HEENT: PERRLA. Extraocular muscles intact. NECK: Supple. No carotid bruits. No thyromegaly. CHEST: Clear to auscultation. HEART: S1, S2 regular. ABDOMEN: Soft. EXTREMITIES: Clubbing and cyanosis negative. BLOOD WORKUP: WBC 12.7, hemoglobin 15.4, hematocrit 44.4, platelet count 285. Chemistry shows sodiu m 138, potassium 3.____, chloride 99, carbon dioxide 27, anion gap of 16, BUN 18, creatinine 1.1. IMPRESSION: Recurrent syncope, hyperlipidemia, anxiety disorder, insomnia, recurrent syncope, status post loop recorder implantation, hypertriglyceridemia, hyperlipidemia, hypokalemia, history of gout, acute gouty arthritis, status post internal loop recorder implantation. So far no evidence of arrhy thmia. RECOMMENDATIONS: We will follow up loop recorder. Added on atorvastatin. Supplement electrolytes. Possible discharge. Discuss with Dr. Angella Knight. Discussed with the . Discussed with the pat ient. Will follow as an outpatient with loop recorder. Gabriela Mejia MD cc: [id number] TT: 02/19/2017 10:00:20 Confirmation # [id number] Dictation # [id number]
[2017-02-19 12:36] VITALS: BP 111/65; PULSE 76; RESP 16; TEMP 98.8
--- NOTE | 2017-02-19 13:15 | CP.PCM.DIS ---
<Analia Mosquera - Last Filed: 02/19/17 15:42> Provider - Provider Date of Admission: 02/17/17 08:53 Attending physician: Angella Knight MD Primary care physician: Jared Zepeda MD Time Spent in preparation of Discharge (in minutes): 45 Hospital Course - Lab Results Lab Results: Most Recent Lab Values WBC 12.7 10^3/ul (4.5-11.0) H 02/19/17 05:00 RBC 5.09 10^6/uL (3.5-6.1) 02/19/17 05:00 Hgb 15.4 gm/dL (14.0-18.0) 02/19/17 05:00 Hct 44.4 % (42.0-52.0) 02/19/17 05:00 MCV 87.2 fL (80.0-105.0) 02/19/17 05:00 MCH 30.3 pg (25.0-35.0) 02/19/17 05:00 MCHC 34.7 g/dl (31.0-37.0) 02/19/17 05:00 RDW 14.6 % (11.5-14.5) H 02/19/17 05:00 Plt Count 285 10^3/uL (120.0-450.0) 02/19/17 05:00 MPV 10.2 fl (7.0-11.0) 02/19/17 05:00 Gran % 60.7 % (50.0-68.0) 02/19/17 05:00 Lymph % (Auto) 27.3 % (22.0-35.0) 02/19/17 05:00 [place] % (Auto) 11.2 % (1.0-6.0) H 02/19/17 05:00 Eos % (Auto) 0.6 % (1.5-5.0) L 02/19/17 05:00 Baso % (Auto) 0.2 % (0.0-3.0) 02/19/17 05:00 Gran # 7.72 (1.4-6.5) H 02/19/17 05:00 Lymph # 3.5 (1.2-3.4) H 02/19/17 05:00 [place] # 1.4 (0.1-0.6) H 02/19/17 05:00 Eos # 0.1 (0.0-0.7) 02/19/17 05:00 Baso # 0.03 K/mm3 (0.0-2.0) 02/19/17 05:00 PT 10.9 Seconds (9.9-11.8) 02/16/17 06:10 INR 1.01 (0.93-1.08) 02/16/17 06:10 APTT 24.0 Seconds (23.7-30.8) 02/16/17 06:10 Sodium 138 mmol/L (132-148) 02/19/17 05:00 Potassium 3.8 mmol/L (3.6-5.0) 02/19/17 05:00 Chloride 99 mmol/L (98-107) 02/19/17 05:00 Carbon Dioxide 27 mmol/L (21-33) 02/19/17 05:00 Anion Gap 16 (10-20) 02/19/17 05:00 BUN 18 mg/dL (7-21) 02/19/17 05:00 Creatinine 1.1 mg/dL (0.5-1.4) 02/19/17 05:00 Est GFR ( Amer) > 60 02/19/17 05:00 Est GFR (Non-Af Amer) > 60 02/19/17 05:00 Random Glucose 97 mg/dL (70-110) 02/19/17 05:00 Calcium 9.3 mg/dL (8.4-10.5) 02/19/17 05:00 Total Bilirubin 0.8 mg/dL (0.2-1.3) 02/19/17 05:00 AST 24 U/L (15-59) 02/19/17 05:00 ALT 37 U/L (7-56) 02/19/17 05:00 Alkaline Phosphatase 57 U/L (38-133) 02/19/17 05:00 Lactate Dehydrogenase 372 U/L (333-699) 02/16/17 06:10 Total Creatine Kinase 71 U/L (35-230) 02/16/17 06:10 Troponin I < 0.01 ng/mL 02/16/17 06:10 Total Protein 8.3 g/dL (5.8-8.3) 02/19/17 05:00 Albumin 4.3 g/dL (3.0-4.8) 02/19/17 05:00 Globulin 4.0 gm/dL 02/19/17 05:00 Albumin/Globulin Ratio 1.1 (1.1-1.8) 02/19/17 05:00 Triglycerides 210 mg/dL (35-160) H 02/17/17 07:57 Cholesterol 228 mg/dL (130-200) H 02/17/17 07:57 LDL Cholesterol Direct 149 mg/dL (0-129) H 02/17/17 07:57 HDL Cholesterol 37 mg/dL (29-60) 02/17/17 07:57 TSH 3rd Generation 1.41 mIU/mL (0.46-4.68) 02/17/17 07:57 Urine Color Yellow (YELLOW) 02/16/17 06:52 Urine Appearance Clear (CLEAR) 02/16/17 06:52 Urine pH 6.0 (4.7-8.0) 02/16/17 06:52 Ur Specific [place] 1.020 (1.005-1.035) 02/16/17 06:52 Urine Protein Negative mg/dL (<30 mg/dL) 02/16/17 06:52 Urine Glucose (UA) Negative mg/dL (NEGATIVE) 02/16/17 06:52 Urine Ketones Negative mg/dL (NEGATIVE) 02/16/17 06:52 Urine Blood Trace-intact (NEGATIVE) H 02/16/17 06:52 Urine Nitrate Negative (NEGATIVE) 02/16/17 06:52 Urine Bilirubin Negative (NEGATIVE) 02/16/17 06:52 Urine Urobilinogen 0.2 E.U./dL (<1 E.U./dL) 02/16/17 06:52 Ur Leukocyte Esterase Negative Alla/uL (NEGATIVE) 02/16/17 06:52 Urine RBC 0 - 2 /hpf (0-2) 02/16/17 06:52 Urine WBC 0 - 2 /hpf (0-6) 02/16/17 06:52 Urine Bacteria Trace (NEG) 02/16/17 06:52 Fluid Type Synovial fluid 02/19/17 08:56 Synovial WBC 75511.0 /uL (0.0-150.0) H 02/19/17 08:56 Synovial RBC 50613.0 /uL (0.0-0.0) H 02/19/17 08:56 Synovial Neutrophils 77.5 % (0-0) H 02/19/17 08:56 Synovial Lymphocytes 22.5 % (0-0) H 02/19/17 08:56 Synov Monos/Macrophage TEST NOT PERFORMED 02/19/17 08:56 Synovial Fluid Comment Light red 02/19/17 08:56 Urine Opiates Screen Negative (NEGATIVE) 02/16/17 18:00 Urine Methadone Screen Negative (NEGATIVE) 02/16/17 18:00 Ur Barbiturates Screen Negative (NEGATIVE) 02/16/17 18:00 Ur Phencyclidine Scrn Negative (NEGATIVE) 02/16/17 18:00 Ur Amphetamines Screen Negative (NEGATIVE) 02/16/17 18:00 U Benzodiazepines Scrn Negative (NEGATIVE) 02/16/17 18:00 U Oth Cocaine Metabols Negative (NEGATIVE) 02/16/17 18:00 U Cannabinoids Screen Negative (NEGATIVE) 02/16/17 18:00 Alcohol, Quantitative < 10 mg/dL (0-10) 02/16/17 14:19 - Hospital Course Hospital Course: 46Y M with PMH of insomnia, anxiety/depression, and gout admitted for syncopal episode. CT head was within normal limits. MRI and MRA of head within normal limits. Cardiology was consulted. Echo showed EF 54%, normal LV function. Carotid doppler showed 20-39% stenosis bilaterally. Patient completed 24hr holter monitor,and loop recorder was placed. Neurology was consulted. EEG showed no epileptiform activity with mild diffuse slowing. Patient complained of new onset right knee pain. Ortho was consulted. Joint effusion showed uric acid crystals, RBCs and inflammatory cells. CT of right knee showed no fractures , moderate osteroarthritic changes, small joint effusion. On blood work patient was found to have elevated cholesterol, trigylcerides and was started on Lipitor. Patient is doing well. The knee pain has improved after aspiration and injection of depo-medrol and marcaine. Patient is stable for discharge home. Discharge instructions are to follow up with primary medical doctor, as well as with neurology, cardiology, and ortho outpatient. New medication prescribed was Lipitor 10 mg PO daily. Discharge diagnoses are syncope, acute gout, hyperlipidemia. Discharge Exam - Head Exam Head Exam: ATRAUMATIC - Eye Exam Eye Exam: EOMI, Normal appearance - ENT Exam ENT Exam: Mucous Membranes Moist - Respiratory Exam Respiratory Exam: Chest Wall Tenderness (near incision site ), Clear to PA & Lateral, NORMAL BREATHING PATTERN, UNREMARKABLE. absent: Wheezes, Respiratory Distress - Cardiovascular Exam Cardiovascular Exam: REGULAR RHYTHM, +S1, +S2. absent: Tachycardia, Diastolic murmur, Systolic Murmur - GI/Abdominal Exam GI & Abdominal Exam: Normal Bowel Sounds, Soft, Unremarkable. absent: Distended , Firm, Guarding, Hernia, Tenderness - Extremities Exam Extremities exam: joint swelling (R>L), tenderness (medial aspect of right knee ) - Neurological Exam Neurological exam: Alert, Oriented x3 - Skin Skin Exam: Dry, Intact, Normal Color, Warm Discharge Plan - Discharge Medications Prescriptions: Atorvastatin [Lipitor] 10 mg PO DIN #15 tab - Follow Up Plan Condition: FAIR Disposition: HOME/ ROUTINE Instructions: Atorvastatin (By mouth), How to Stop Smoking (DC), Syncope (DC), Cardiac Loop Recorder Insertion (DC) Additional Instructions: Patient is stable for discharge home. Discharge instructions: - follow up with primary medical doctor in 3-5 days - follow up with neurology, Dr. Cline in 2 weeks - follow up with cardiology, Dr. Christensen in 2 weeks - follow up with ortho, Dr. mata in 2 weeks New medication: lipitor 10 mg PO daily Discharge diagnose: - syncope - acute gout - hyperlipidemia Referrals: Jared Zepeda MD [Primary Care Provider] - Jules Cline MD [Staff Provider] - Marino Mata DO [Staff Provider] - Gabriela Christensen MD [Staff Provider] - <Angella Knight - Last Filed: 02/19/17 16:28> Provider - Provider Date of Admission: 02/17/17 08:53 Attending physician: Angella Knight MD Primary care physician: Jared Zepeda MD Hospital Course - Lab Results Lab Results: Most Recent Lab Values WBC 12.7 10^3/ul (4.5-11.0) H 02/19/17 05:00 RBC 5.09 10^6/uL (3.5-6.1) 02/19/17 05:00 Hgb 15.4 gm/dL (14.0-18.0) 02/19/17 05:00 Hct 44.4 % (42.0-52.0) 02/19/17 05:00 MCV 87.2 fL (80.0-105.0) 02/19/17 05:00 MCH 30.3 pg (25.0-35.0) 02/19/17 05:00 MCHC 34.7 g/dl (31.0-37.0) 02/19/17 05:00 RDW 14.6 % (11.5-14.5) H 02/19/17 05:00 Plt Count 285 10^3/uL (120.0-450.0) 02/19/17 05:00 MPV 10.2 fl (7.0-11.0) 02/19/17 05:00 Gran % 60.7 % (50.0-68.0) 02/19/17 05:00 Lymph % (Auto) 27.3 % (22.0-35.0) 02/19/17 05:00 [place] % (Auto) 11.2 % (1.0-6.0) H 02/19/17 05:00 Eos % (Auto) 0.6 % (1.5-5.0) L 02/19/17 05:00 Baso % (Auto) 0.2 % (0.0-3.0) 02/19/17 05:00 Gran # 7.72 (1.4-6.5) H 02/19/17 05:00 Lymph # 3.5 (1.2-3.4) H 02/19/17 05:00 [place] # 1.4 (0.1-0.6) H 02/19/17 05:00 Eos # 0.1 (0.0-0.7) 02/19/17 05:00 Baso # 0.03 K/mm3 (0.0-2.0) 02/19/17 05:00 PT 10.9 Seconds (9.9-11.8) 02/16/17 06:10 INR 1.01 (0.93-1.08) 02/16/17 06:10 APTT 24.0 Seconds (23.7-30.8) 02/16/17 06:10 Sodium 138 mmol/L (132-148) 02/19/17 05:00 Potassium 3.8 mmol/L (3.6-5.0) 02/19/17 05:00 Chloride 99 mmol/L (98-107) 02/19/17 05:00 Carbon Dioxide 27 mmol/L (21-33) 02/19/17 05:00 Anion Gap 16 (10-20) 02/19/17 05:00 BUN 18 mg/dL (7-21) 02/19/17 05:00 Creatinine 1.1 mg/dL (0.5-1.4) 02/19/17 05:00 Est GFR ( Amer) > 60 02/19/17 05:00 Est GFR (Non-Af Amer) > 60 02/19/17 05:00 Random Glucose 97 mg/dL (70-110) 02/19/17 05:00 Calcium 9.3 mg/dL (8.4-10.5) 02/19/17 05:00 Total Bilirubin 0.8 mg/dL (0.2-1.3) 02/19/17 05:00 AST 24 U/L (15-59) 02/19/17 05:00 ALT 37 U/L (7-56) 02/19/17 05:00 Alkaline Phosphatase 57 U/L (38-133) 02/19/17 05:00 Lactate Dehydrogenase 372 U/L (333-699) 02/16/17 06:10 Total Creatine Kinase 71 U/L (35-230) 02/16/17 06:10 Troponin I < 0.01 ng/mL 02/16/17 06:10 Total Protein 8.3 g/dL (5.8-8.3) 02/19/17 05:00 Albumin 4.3 g/dL (3.0-4.8) 02/19/17 05:00 Globulin 4.0 gm/dL 02/19/17 05:00 Albumin/Globulin Ratio 1.1 (1.1-1.8) 02/19/17 05:00 Triglycerides 210 mg/dL (35-160) H 02/17/17 07:57 Cholesterol 228 mg/dL (130-200) H 02/17/17 07:57 LDL Cholesterol Direct 149 mg/dL (0-129) H 02/17/17 07:57 HDL Cholesterol 37 mg/dL (29-60) 02/17/17 07:57 TSH 3rd Generation 1.41 mIU/mL (0.46-4.68) 02/17/17 07:57 Urine Color Yellow (YELLOW) 02/16/17 06:52 Urine Appearance Clear (CLEAR) 02/16/17 06:52 Urine pH 6.0 (4.7-8.0) 02/16/17 06:52 Ur Specific [place] 1.020 (1.005-1.035) 02/16/17 06:52 Urine Protein Negative mg/dL (<30 mg/dL) 02/16/17 06:52 Urine Glucose (UA) Negative mg/dL (NEGATIVE) 02/16/17 06:52 Urine Ketones Negative mg/dL (NEGATIVE) 02/16/17 06:52 Urine Blood Trace-intact (NEGATIVE) H 02/16/17 06:52 Urine Nitrate Negative (NEGATIVE) 02/16/17 06:52 Urine Bilirubin Negative (NEGATIVE) 02/16/17 06:52 Urine Urobilinogen 0.2 E.U./dL (<1 E.U./dL) 02/16/17 06:52 Ur Leukocyte Esterase Negative Alla/uL (NEGATIVE) 02/16/17 06:52 Urine RBC 0 - 2 /hpf (0-2) 02/16/17 06:52 Urine WBC 0 - 2 /hpf (0-6) 02/16/17 06:52 Urine Bacteria Trace (NEG) 02/16/17 06:52 Fluid Type Synovial fluid 02/19/17 08:56 Synovial WBC 56945.0 /uL (0.0-150.0) H 02/19/17 08:56 Synovial RBC 27798.0 /uL (0.0-0.0) H 02/19/17 08:56 Synovial Neutrophils 77.5 % (0-0) H 02/19/17 08:56 Synovial Lymphocytes 22.5 % (0-0) H 02/19/17 08:56 Synov Monos/Macrophage TEST NOT PERFORMED 02/19/17 08:56 Synovial Fluid Comment Light red 02/19/17 08:56 Urine Opiates Screen Negative (NEGATIVE) 02/16/17 18:00 Urine Methadone Screen Negative (NEGATIVE) 02/16/17 18:00 Ur Barbiturates Screen Negative (NEGATIVE) 02/16/17 18:00 Ur Phencyclidine Scrn Negative (NEGATIVE) 02/16/17 18:00 Ur Amphetamines Screen Negative (NEGATIVE) 02/16/17 18:00 U Benzodiazepines Scrn Negative (NEGATIVE) 02/16/17 18:00 U Oth Cocaine Metabols Negative (NEGATIVE) 02/16/17 18:00 U Cannabinoids Screen Negative (NEGATIVE) 02/16/17 18:00 Alcohol, Quantitative < 10 mg/dL (0-10) 02/16/17 14:19 Attending/Attestation - Attestation I have personally seen and examined this patient.: Yes I have fully participated in the care of the patient.: Yes I have reviewed all pertinent clinical information, including history, physical exam and plan: Yes Notes (Text): I have seen and examined the patient with the resident. Briefly this is 46 year old male with history of insomnia, anxiety, depression who got admitted for evaluation of multiple episodes of syncope. Last stress test was done 2 years ago was normal. Echo normal. Loop recorder in place. CT head, MRI /MRA brain negative. Carotid doppler negative. EEG is abnormal but is not suggestive of seizure. Discussed with Dr Cline and Dr Mejia. Since yesterday patient was complaining of acute non traumatic right knee pain most likely secondary to acute gouty arthritis. Synovial fluid analysis confirmed that. IA injection was given by Dr Mata which relieved his pain and he was able to walk. Bingo Floater, neurologist and ortho cleared the patient for discharge. Upon discharge the patient will follow-up with PMD Dr. Zepeda and Dr Mcconnell. Dr Angella Knight
== END 2017-02-19 15:02 | disposition home or self-care (01) | DRG 262 ==
LOC: ED 05:26 → ERH 07:31 → 2RNO 09:27 → OBSVTOIN 02-17 08:53
PROVIDERS: ADMIT Internal Medicine; ATTEND Hospitalist
PROC: 0HQ1XZZ Repair Face Skin, External Approach (ICD-10-PCS; 2017-02-16)
PROC: 0JH632Z Insertion of Monitoring Device into Chest Subcutaneous Tissue and Fascia, Percutaneous Approach (ICD-10-PCS; principal; 2017-02-18)
PROC: 0S9C3ZX Drainage of Right Knee Joint, Percutaneous Approach, Diagnostic (ICD-10-PCS; 2017-02-19)
PROC: 3E0U33Z Introduction of Anti-inflammatory into Joints, Percutaneous Approach (ICD-10-PCS; 2017-02-19)
PROC: 3E0U3BZ Introduction of Anesthetic Agent into Joints, Percutaneous Approach (ICD-10-PCS; 2017-02-19)
DX: R55 Syncope and collapse (principal); S01.81XA Laceration without foreign body of other part of head, initial encounter; M10.061 Idiopathic gout, right knee; I65.23 Occlusion and stenosis of bilateral carotid arteries; E87.6 Hypokalemia; F32.9 Major depressive disorder, single episode, unspecified; E78.1 Pure hyperglyceridemia; G47.00 Insomnia, unspecified; E78.5 Hyperlipidemia, unspecified; F41.9 Anxiety disorder, unspecified; W18.12XA Fall from or off toilet with subsequent striking against object, initial encounter; Y93.E8 Activity, other personal hygiene; Z87.891 Personal history of nicotine dependence; Y92.002 Bathroom of unspecified non-institutional (private) residence as the place of occurrence of the external cause; Y99.8 Other external cause status